=== PATIENT | female | born 1955 | race Caucasian/White ===

== ENCOUNTER 2018-12-09 07:07 | Observation (INO) | payer OTHER ==
[2018-12-09] MEDS ORDERED: ceFAZolin 2 GM/DEXTROSE 100 ML IV ONE (07:23)
[2018-12-09] MEDS ORDERED: LIDOCAINE 1% 2 ML INJ ID PRN (07:24)
[2018-12-09] MEDS ORDERED: LR 1,000 ML IV ONE (07:24)
--- NOTE | 2018-12-09 08:00 | POSTOPPROG ---
Post Op Note Date of Operation: 12/09/18 Surgeon: Anais Onofre Squad Boss: Anais Onofre Anesthesiologist: Kenan Lang Anesthesia: GET(General Endotracheal) Pre-op Diagnosis: Graves disease, hyperthyroidism Post-op Diagnosis: same Procedure: total thyroidectomy Findings: goiterous thryoid, L>R Inf/Abcess present in the surg proc area at time of surgery?: No EBL: Minimal Complications: none Bowel Protocol: N/A Clean Closure Performed: N/A Specimen(s): total thyroid to pathology
--- NOTE | 2018-12-09 08:00 | PDHPUP ---
History & Physical Update H&P update statement: This history and physical update is based on an assessment of the patient which was completed after admission or registration (within 24 hours), but prior to the surgery/procedure. H&P update: H&P reviewed & patient examined, no change in patient's condition since H&P completed
[2018-12-09] MEDS ORDERED: BUPIVACAINE/EPI 0.5% 30 ML SDV ONE (08:05)
[2018-12-09] MEDS ORDERED: THROMBIN (BOVINE) 5,000 UNIT VIAL TP ONE (08:05)
--- NOTE | 2018-12-09 08:09 | PDANEPAE ---
ANE History of Present Illness Graves dz with difficulty controlling for total thyroidectomy ANE Past Medical History - Cardiovascular History Hx Hypertension: No Hx Arrhythmias: No Hx Chest Pain: No Hx Coronary Artery / Peripheral Vascular Disease: No Hx CHF / Valvular Disease: No Hx Palpitations: No - Pulmonary History Hx COPD: No Hx Asthma/Reactive Airway Disease: No Hx Recent Upper Respiratory Infection: No Hx Oxygen in Use at Home: No Hx Sleep Apnea: No Sleep Apnea Screening Result - Last Documented: Negative - Neurologic History Hx Cerebrovascular Accident: No Hx Seizures: No Hx Dementia: No - Endocrine History Hx Diabetes: No - Renal History Hx Renal Disorders: No - Liver History Hx Hepatic Disorders: No - Neurological & Psychiatric Hx Hx Neurological and Psychiatric Disorders: Yes Neurological / Psychiatric History Comment: tremor - Cancer History Hx Cancer: No - Congenital Disorder History Hx Congenital Disorders: No - GI History Hx Gastrointestinal Disorders: No - Other Health History Other Health History: none - Chronic Pain History Chronic Pain: No - Surgical History Prior Surgeries: umbilical hernia. endometriosis. eyelid. breast augmentation ANE Review of Systems Review of Systems: - Exercise capacity METS (RN): 4 METS ANE Patient History - Allergies Allergies/Adverse Reactions: No Known Drug Allergies Allergy (Verified 12/08/18 09:49) - Home Medications Home Medications: Estradiol [Estradiol 1 MG (*)] 1.5 mg PO DAILY 12/05/18 [Last Taken Unknown] Herbals/Supplements -Info Only 1 ea PO DAILY 12/05/18 [Last Taken Unknown] Methimazole 10 mg PO BID 12/05/18 [Last Taken Unknown] Propranolol HCl [Inderal 20mg (*)] 20 mg PO BID 12/05/18 [Last Taken Unknown] medroxyPROGESTERone [Provera 2.5 mg (*)] 2.5 mg PO DAILY 12/05/18 [Last Taken Unknown] - NPO status NPO Since - Liquids (Date): 12/08/18 NPO Since - Liquids (Time): 23:30 NPO Since - Solids (Date): 12/08/18 NPO Since - Solids (Time): 19:00 - Anes Hx Anes Hx: no prior problems, post operative nausea - Smoking Hx Smoking Status: Never smoked - Family Anes Hx Family Hx Anesthesia Complications: none ANE Labs/Vital Signs - Vital Signs Blood Pressure: 149/53 Heart Rate: 63 Respiratory Rate: 16 O2 Sat (%): 94 Height: 173.99 cm Weight: 65.771 kg ANE Physical Exam - Airway Neck exam: FROM Mallampati Score: Class 2 Mouth exam: normal dental/mouth exam - Pulmonary Pulmonary: no respiratory distress - Cardiovascular Cardiovascular: regular rate and rhythym - ASA Status ASA Status: II ANE Anesthesia Plan Anesthesia Plan: general endotracheal anesthesia
[2018-12-09] MEDS ORDERED: MIDAZOLAM 2 MG/2 ML VIAL IVP ONE (08:31)
[2018-12-09] MEDS ORDERED: MIDAZOLAM 2 MG/2 ML VIAL ONE (08:33)
[2018-12-09] MEDS ORDERED: fentaNYL 100 MCG/2 ML INJ ONE ×2 (08:37→10:13)
[2018-12-09] MEDS ORDERED: LIDOCAINE 2% 2 ML INJ ONE (08:39)
[2018-12-09] MEDS ORDERED: PROPOFOL 200 MG/20 ML VIAL ONE (08:39)
[2018-12-09] MEDS ORDERED: DEXAMETHASONE 4 MG/ML VIAL ONE (08:54)
[2018-12-09] MEDS ORDERED: ROCURONIUM 50 MG/5 ML VIAL ONE (08:54)
[2018-12-09] MEDS ORDERED: ONDANSETRON 4 MG/2 ML VIAL ONE (08:55)
[2018-12-09] MEDS ORDERED: METOPROLOL TARTRATE 5 MG/5 ML INJ ONE (08:56)
[2018-12-09] MEDS ORDERED: LABETALOL HCL 5 MG/ML 20 ML MDV ONE (09:07)
[2018-12-09] MEDS ORDERED: HYDROCODONE/APAP 5/325 TAB PO PRN (09:26)
[2018-12-09] MEDS ORDERED: ONDANSETRON 4 MG/2 ML VIAL IVP PRN ×2 (09:26→10:00)
[2018-12-09] MEDS ORDERED: HYDROmorphONE/DILAUDID 1 MG/ML INJ IVP PRN (09:26)
[2018-12-09] MEDS ORDERED: NALOXONE HCL 0.4 MG/ML INJ IVP PRN (09:26)
[2018-12-09] MEDS ORDERED: PROMETHAZINE HCL 25 MG/ML INJ IVP PRN (09:26)
[2018-12-09] MEDS ORDERED: oxyCODONE IR 5 MG TAB PO PRN (09:26)
--- NOTE | 2018-12-09 10:06 | POSTANESTH ---
Post Anesthetic Evaluation Cardiovascular Status: Similar to Pre-Op Cond Respiratory Status: Similar to Pre-op Cond. Level of Consciousness/Mental Status: Can Participate in Eval, Alert and Oriented Pain Control: Adequate, Prn Tx Ordered Nausea/Vomiting Control: Adequate, Prn Tx Ordered Complications Possibly Related to Anesthesia: None Noted
[2018-12-09] MEDS: fentaNYL 100 MCG/2 ML INJ IVP PRN ×2 (10:15→10:23)
[2018-12-09] MEDS ORDERED: oxyCODONE IR 5 MG TAB ONE (10:24)
[2018-12-09] MEDS: HYDROmorphONE/DILAUDID 1 MG/ML INJ IVP PRN ×2 (12:09→18:06)
--- NOTE | 2018-12-09 19:09 | SOAPPROG ---
SOAP Progress Note Assessment/Plan: Assessment: STATUS POST TOTAL THYROIDECTOMY FOR PAPILLARY CANCER WOUND OKAY/CHOVSTEK'S NEGATIVE/VOICE OKAY/CALCIUM A 0.2 Plan: HOME IN THE A.M. 12/09/18 19:06 Objective: Vital Signs Temp Pulse Resp BP Pulse Ox 36.8 C 57 L 18 116/60 93 12/09/18 15:38 12/09/18 15:38 12/09/18 15:38 12/09/18 15:38 12/09/18 15:38 12/08/18 12/09/18 12/10/18 05:59 05:59 05:59 Intake Total 1300 Output Total 5 Balance 1295 ICD10 Worksheet Patient Problems: Problems Problem Status Onset Thyroid cancer Acute - ICD10 Problem Qualifiers (1) Thyroid cancer
[2018-12-09] MEDS ORDERED: LEVOTHYROXINE 100 MCG TAB PO SCH (21:00)
[2018-12-09] MEDS: CALCIUM CARBONATE 500 MG CHEWABLE TAB PO SCH (21:33)
[2018-12-09] MEDS: DOCUSATE SODIUM 100 MG CAP PO SCH (21:33)
[2018-12-09] MEDS: PROPRANOLOL HCL 20 MG TAB PO SCH (21:34)
[2018-12-09] MEDS: HYDROCODONE/APAP 5/325 TAB PO PRN (21:43)
[2018-12-10] MEDS: HYDROCODONE/APAP 5/325 TAB PO PRN ×2 (06:25→09:42)
[2018-12-10 08:06] VITALS: BP 119/63
--- NOTE | 2018-12-10 08:23 | SOAPPROG ---
SOAP Progress Note Assessment/Plan: Assessment/Plan: 63 Y F s/p total thyroidectomy for Graves. POD#1. Doing well. Synthroid started. Ca better c tums--plan for Ca supplement at home and outpt f/u. Wounds intact. Pain controlled. Dispo: home today. S: no complaints. a little sore. O: alert, nad inc cdi no wob rrr abd soft 12/10/18 08:21 Objective: Vital Signs Temp Pulse Resp BP Pulse Ox 36.9 C 72 16 119/63 91 L 12/10/18 08:05 12/10/18 08:05 12/10/18 08:05 12/10/18 08:05 12/10/18 08:05 Laboratory Results 12/10/18 04:42 12/10/18 04:42 12/09/18 12/10/18 12/11/18 05:59 05:59 05:59 Intake Total 2074 Output Total Balance 2069 ICD10 Worksheet Patient Problems: Problems Problem Status Onset Thyroid cancer Acute
[2018-12-10] MEDS ORDERED: ESTRADIOL 1 MG TAB PO SCH (09:00)
[2018-12-10] MEDS: CALCIUM CARBONATE 500 MG CHEWABLE TAB PO SCH (09:42)
[2018-12-10] MEDS: DOCUSATE SODIUM 100 MG CAP PO SCH (09:42)
[2018-12-10] MEDS: PROPRANOLOL HCL 20 MG TAB PO SCH (09:45)
--- NOTE | 2018-12-10 11:50 | GOP ---
[f rep st] OPERATIVE REPORT DATE OF OPERATION: 12/09/2018 SURGEON: Chago Sheehan MD PRINTED CIRCUIT BOARD DESIGNER: SANTOS Diego. ANESTHESIOLOGIST: Dr. Lang. PREOPERATIVE DIAGNOSIS: Graves disease and thyroid goiter. POSTOPERATIVE DIAGNOSIS: Graves disease and thyroid goiter. PROCEDURE PERFORMED: Total thyroidectomy. FINDINGS: The patient was found to have mild goitrous change to the thyroid with the left lobe being greater than the right. ESTIMATED BLOOD LOSS: Negligible. DESCRIPTION OF PROCEDURE: Patient was taken to the operating room where she received satisfactory ge neral endotracheal anesthesia by Dr. Lang. She was placed in supine position, prepped and dr aped in usual sterile fashion. A low-collar incision was made and carried down through the platysma. Continual platysmal flaps were developed to the thyroid cartilage and to the sternal notch. Strap muscles were in the midline. The thyroid lobes were exposed. The left lobe was rotated me dially and dissection extended close to the thyroid capsule. The recurrent laryngeal nerve was ident ified and spared from injury, and the parathyroid glands were dissected off the thyroid capsule with their blood supply preserved. The gland was rotated medially. The superior pole vessels were taken with the Harmonic scalpel after delineation of the recurrent nerve anatomy. The thyroid was then dis sected off the anterior trachea across the midline and dividing some vessels from the carinal area. The right lobe was handled in a similar manner with division of the upper pole vessels after finding the course of the recurrent laryngeal nerve. The parathyroid glands were also spared and the entire gland was rotated medially and dissected off the trachea and removed intact. Hemostasis was carefull y obtained with hemoclips and Harmonic scalpel and/or cautery. Some thrombin was placed in the surgi lizet bed and the strap muscles approximated with 3-0 Vicryl. Wounds were infiltrated with 0.5% Marcai ne. Platysma was closed with 3-0 Vicryl and the skin with a 4-0 Monocryl subcuticular stitch. She t olerated the procedure well, taken to recovery room in good condition. COMPLICATIONS: None. Copy requested to: Dr. Razo /[id number]/MODL
[2018-12-11] MEDS ORDERED: ENOXAPARIN 40 MG/0.4 ML SYR SC SCH (09:00)
== END 2018-12-10 10:07 | disposition home or self-care (01) ==
LOC: F3N 07:07 → F3E 10:05
PROVIDERS: ADMIT Surgery; ATTEND Surgery
PROC: 0GTK0ZZ Resection of Thyroid Gland, Open Approach (ICD-10-PCS; principal; 2018-12-09 08:30)
DX: E05.00 Thyrotoxicosis with diffuse goiter without thyrotoxic crisis or storm (principal)
CPT/HCPCS: G0378; J0690; J1100; J1170; J2250; J2405; J2704; J3010